=== PATIENT | female | born 1950 | race Caucasian/White ===

== ENCOUNTER → 2021-08-26 | Day surgery (SDC) | payer OTHER, MEDICARE ==
[~2021-08-26] VITALS: Ht 160 cm; Wt 81.2 kg
[~2021-08-26] MED LIST: ASPIRIN EC81 MG PO; EUTHYROX75 MCG PO; GABAPENTIN600 MG PO; HCTZ12.5 MG PO; LIPITOR 10MG TA10 MG PO; NORVASC5 MG PO; PRINIVIL20 MG PO
[2021-08-26 09:52] LABS: HCT 44.9 % (37.0-47.0); HGB 14.8 g/dl (12.5-16.0); MCH 28.5 pg (25.0-31.0); MCV 86.3 fL (78.0-100.0); MPV 12.1 fL (6.0-9.5); RBC 5.2 M/uL (4.20-5.40); RDW 13.3 % (11.5-14.0); WBC 9.3 K/uL (4.0-10.5)
[2021-08-26 10:21] LABS: ALBUMIN 3.7 g/dL (3.4-5.0); BILIRUBIN - TOTAL 0.5 mg/dL (0.2-1.0); CREATININE 0.91 mg/dL (0.51-0.95); GLOBULIN (CALCULATION) 3.5 g/dL; POTASSIUM 3.9 mmol/L (3.5-5.1); TOTAL PROTEIN 7.2 g/dL (6.4-8.2)
== END | disposition home or self-care (01) ==
LOC: FAS 08:23
PROVIDERS: Orthopaedic Surgery
DX: G56.03 Carpal tunnel syndrome, bilateral upper limbs (principal); I10 Essential (primary) hypertension; E78.00 Pure hypercholesterolemia, unspecified; E03.9 Hypothyroidism, unspecified; K21.9 Gastro-esophageal reflux disease without esophagitis; F17.210 Nicotine dependence, cigarettes, uncomplicated; Z79.82 Long term (current) use of aspirin; Z79.899 Other long term (current) drug therapy
CPT/HCPCS: 36415; 80053; 93005; J1100; J2405; J3010; J7120